=== PATIENT | male | born 1965 | race African-American/Black ===

== ENCOUNTER 2022-07-24 18:46 | Emergency (ER) | payer MEDICAID, OTHER ==
[~2022-07-24] VITALS: Ht 167.6 cm; Wt 127.0 kg
[2022-07-24] MEDS ORDERED: IBUPROFEN 400MG TABLET PO ONE (19:30)
[2022-07-24] MEDS ORDERED: ACETAMINOPHEN 325MG TABLET PO ONE (19:30)
[2022-07-24 19:40] VITALS: BP 164/93
== END 2022-07-24 22:41 | disposition home or self-care (01) ==
LOC: ER 18:46
DX: M54.2 Cervicalgia (principal); V49.49XA Driver injured in collision with other motor vehicles in traffic accident, initial encounter; Y93.89 Activity, other specified; Y92.89 Other specified places as the place of occurrence of the external cause; Y99.8 Other external cause status; E11.9 Type 2 diabetes mellitus without complications
CPT/HCPCS: 99284